=== PATIENT | male | born 1970 | race Asian ===

== ENCOUNTER 2024-04-09 08:41 | Emergency (ER) | payer MEDICARE, SELFPAY ==
[~2024-04-09] VITALS: Ht 170.2 cm; Wt 68.2 kg
[~2024-04-09 08:41] MED LIST: PALI234D IM
[2024-04-09 08:45] VITALS: TEMP 98.4
[2024-04-09] MEDS: ACETAMINOPHEN 500 MG TABLET PO ONE (09:06)
[2024-04-09] MEDS ORDERED: ACET-3385 PO (09:22)
[2024-04-09 10:01] VITALS: BP 122/80; PULSE 84; RESP 16; O2SAT 96
== END 2024-04-09 10:41 | disposition home or self-care (01) ==
LOC: EMS 08:42
DX: M25.551 Pain in right hip (principal); I10 Essential (primary) hypertension; F20.9 Schizophrenia, unspecified; F17.210 Nicotine dependence, cigarettes, uncomplicated; F15.90 Other stimulant use, unspecified, uncomplicated
CPT/HCPCS: 73502; 99283